=== PATIENT | female | born 1930 | race Caucasian/White ===

== ENCOUNTER 2016-10-18 15:26 | Emergency (ER) | payer MEDICARE ==
[2016-10-18 15:48] LABS: BASOPHIL# 0.1 X 10^3uL (0.0-0.1); BASOPHILS 1.1 % (0.0-2.0); EOSINOPHILS 1.6 % (0.0-6.0); EOSINOPHILS# 0.1 X 10^3uL (0.0-0.4); HEMATOCRIT 42.7 % (36.0-48.0); HEMOGLOBIN 14.6 g/dL (12.0-16.0); LYMPHOCYTES 23.2 % (20.0-40.0); LYMPHOCYTES# 1.5 X 10^3uL (0.8-3.8); MEAN CELL VOLUME 84.5 fL (80.0-100.0); MEAN CORPUS. HGB CONCENTRATION 34.1 g/dL (32.0-36.0); MEAN CORPUSCULAR HEMOGLOBIN 28.9 pg (29.0-35.0); MEAN PLATELET VOLUME 11.1 fL (7.4-10.4); MONOCYTES 8.4 % (2.0-10.0); MONOCYTES# 0.6 X 10^3uL (0.2-1.0); NEUTROPHILS 65.7 % (54.0-75.0); NEUTROPHILS# 4.3 X 10^3uL (2.6-6.7); PLATELET COUNT 133 X 10^3uL (130-440); RED BLOOD COUNT 5.05 X 10^6uL (4.20-6.10); RED CELL DISTRIBUTION WIDTH 13.5 % (11.5-14.5); WHITE BLOOD COUNT 6.6 X 10^3uL (3.9-10.7)
[2016-10-18 16:18] LABS: ALBUMIN 4.2 g/dL (3.5-5.0); ALKALINE PHOSPHATASE 62 U/L (38-126); ALT 33 U/L (9-52); AST 24 U/L (14-36); BILIRUBIN, DIRECT 0.3 mg/dL (0.0-0.4); BILIRUBIN, TOTAL 1.2 mg/dL (0.2-1.3); BLOOD UREA NITROGEN 30 mg/dL (7-17); CALCIUM 10.4 mg/dL (8.4-10.2); CHLORIDE 107 mmol/L (98-107); CREATININE 1.3 mg/dL (0.5-1.0); GLUCOSE 91 mg/dL (70-100); LIPASE 216 U/L (23-300); POTASSIUM 3.9 mmol/L (3.5-5.1); SODIUM 141 mmol/L (137-145); TOTAL PROTEIN 7.2 g/dL (6.3-8.2)
[2016-10-18 16:26] LABS: ACETAMINOPHEN < 10.0 ug/mL (10.0-30.0); ETHYL ALCOHOL < 10 mg/dL (<10); SALICYLATE < 1.0 mg/dL (<20.0)
[2016-10-18 16:48] LABS: THYROID STIMULATING HORMONE 1.41 uIU/mL (0.47-4.68)
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
== END 2016-10-18 16:56 | disposition short-term general hospital (02) ==
LOC: ER 15:26
DX: R41.82 Altered mental status, unspecified (principal); G30.9 Alzheimer's disease, unspecified; F02.81 Dementia in other diseases classified elsewhere, unspecified severity, with behavioral disturbance; Z74.3 Need for continuous supervision
CPT/HCPCS: 80048; 80076; 80307; 80320; 80329; 83690; 84443; 85025; 99285; A0425; A0429